=== PATIENT | female | born 1975 | race Caucasian/White ===

== ENCOUNTER 2017-04-05 16:41 | Emergency (ER) | payer OTHER ==
[~2017-04-05] VITALS: Ht 172.7 cm; Wt 79.3 kg
[2017-04-05 16:44] VITALS: TEMP 37; Ht 172.7 cm; Wt 79.3 kg
[2017-04-05] MEDS ORDERED: DEXAMETHASONE SOD INJ 10 MG/ML VIAL PO ONE (17:00)
[2017-04-05] MEDS ORDERED: FAMOTIDINE 20 MG TAB PO ONE (17:00)
[2017-04-05] MEDS ORDERED: BCPILLS PO (17:04)
--- NOTE | 2017-04-05 18:04 | EMERGENCY ROOM VISIT NOTE ---
History Report prepared by Markibmanan: Eliazar Green Under the Supervision of: Dr. Meaghan Duval D.O. First contact with patient: 16:44 Chief Complaint: ALLERGIC REACTION Stated Complaint: ALLERGIC REACTION History of Present Illness The patient is a 41 year old female who presents to the Emergency Room with complaints of an improving allergic reaction beginning 3.5 hours ago. 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 Per EMS, the patient's only symptoms is periorbital swelling. They state that the patient was given 100 mg of Benadryl at the camp which appears to have helped her symptoms. The patient states that the only new exposure she can think of is that she took liquid children's Tylenol last night and this morning. She denies any new foods, hygienic products , or bug bites. She states that she felt very congested with her symptoms, but states that this has improved. The patient denies any chest pain. She notes that her dog has a similar reaction last week, and is not sure if this could be related. She has no known history of allergies. Source of History: patient, EMS Onset: 3.5 hours ago Position: head (periorbital) Quality: other (allergic reaction) Timing: other (improving) Associated Symptoms: No chest pain Note: The patient also complains of improving congestion. Review of Systems See HPI for pertinent positives & negatives. A total of 10 systems reviewed and were otherwise negative. Past Medical & Surgical Medical Problems: (1) No Known Active Medical Problems Family History No pertinent family history stated. Social History Housing Status: lives with family Current/Historical Medications Scheduled Control Pills ( Control Pills), 1 TAB PO DAILY Epinephrine (Epipen), 0.3 MG IM UD Allergies Coded Allergies: No Known Allergies (Unverified , 04/05/17) Physical Exam Vital Signs Date Time Temp Pulse Resp B/P (MAP) Pulse Ox O2 Delivery O2 Flow Rate FiO2 04/05/17 19:01 89 16 129/60 98 04/05/17 17:39 75 16 117/70 99 Room Air 04/05/17 17:14 71 16 119/69 98 Room Air 04/05/17 16:48 80 04/05/17 16:44 Room Air 04/05/17 16:44 37.0 80 16 125/78 95 Room Air Physical Exam GENERAL: alert, well appearing, well nourished, no distress, non-toxic EYE EXAM: normal conjunctiva, PERRL and EOM's grossly intact. Periorbital edema noted. OROPHARYNX: no exudate, no erythema, lips, buccal mucosa, and tongue normal and mucous membranes are moist. No stridor. No swelling to the mouth or tongue. NECK: supple, no nuchal rigidity, no adenopathy, non-tender LUNGS: Clear to auscultation. Normal chest wall mechanics HEART: no murmurs, S1 normal and S2 normal ABDOMEN: abdomen soft, non-tender, normo-active bowel sounds, no masses, no rebound or guarding. BACK: Back is symmetrical on inspection and there is no deformity, no midline tenderness, no CVA tenderness. SKIN: no rashes and no bruising. No urticaria. UPPER EXTREMITIES: upper extremities are grossly normal. LOWER EXTREMITIES: No pitting edema. NEURO EXAM: Normal sensorium, cranial nerves II-XII grossly intact, normal speech, no gross weakness of arms, no gross weakness of legs. Medical Decision & Procedures Medications Administered Medications (Trade) Dose Ordered Sig/Ori Route Start Time Stop Time Status Last Admin Dose Admin Famotidine (Pepcid Tab) 20 mg NOW ONCE PO 04/05/17 17:00 04/05/17 17:01 DC 04/05/17 17:12 20 MG Dexamethasone Sodium Phosphate (Decadron Inj) 10 mg NOW ONCE PO 04/05/17 17:00 04/05/17 17:01 DC 04/05/17 17:13 10 MG Diphenhydramine HCl (diphenhydrAMINE 25MG HOME PACK) 1 homepack UD ONCE PO 04/05/17 19:00 04/05/17 19:01 DC 04/05/17 18:55 1 HOMEPACK ED Course 1647: The patient was evaluated in room C12B. A complete history and physical exam was performed. 1700: Ordered Decadron Inj 10 mg PO, Pepcid Tab 20 mg PO. 1752: I reassessed the patient she is still having some eye swelling, but it appears to be improving. She has no other symptoms. 180: Upon reevaluation, the patient is feeling better. I discussed the findings and the treatment plan with the patient. She verbalizes agreement and understanding. She was discharged home. Medical Decision Differential diagnosis: Etiologies such as allergic reaction, anaphylaxis, urticaria, Burnette-Zach syndrome, toxic epidermal necrolysis, erythema multiforme, cellulitis, as well as others were entertained. Patient well-appearing here states symptoms were improving by arrival but were not completely resolved. Patient given Benadryl by [facility] [employer] members. Patient with no prior history of significant allergic reactions, and unknown trigger today's events. Patient with no other systemic symptoms of anaphylaxis , no urticaria, no respiratory difficulty or hypoxia. Patient states developed nasal congestion and bilateral periorbital edema. No change in vision, no fevers chills, on exam patient well-appearing without any distress with mild periorbital edema, no evidence of periorbital cellulitis, no proptosis, normal vision at bedside. Patient given additional medications here which did help but not completely resolve her symptoms. Discussed the patient follow up with family doctor as well as possible need for additional allergy testing. Discussed use of EpiPen, Benadryl the next 2 days, symptoms to watch and return for, she verbalized understanding and was agreeable with plan. Medication Reconcilliation Current Medication List: was personally reviewed by me Blood Pressure Screening Patient's blood pressure: Normal blood pressure Blood pressure disposition: Did not require urgent referral Impression Primary Impression: Allergic reaction Scribe Attestation The scribe's documentation has been prepared under my direction and personally reviewed by me in its entirety. I confirm that the note above accurately reflects all work, treatment, procedures, and medical decision making performed by me. Departure Information Dispostion Home / Self-Care Prescriptions Epinephrine (EPIPEN) 0.3 Mg/0.3 Ml Inj 0.3 MG IM UD for ALLERGIC REACTION, #1 UNIT Prov: Meaghan Duval, 04/05/17 Patient Instructions My [facility] Additional Instructions Please follow up with your family doctor upon returning home. Please take Benadryl approximately every 6 hours of the next 2 days to help prevent any rebound allergic reaction. Please keep EpiPen with you at all times as a precaution. You may require additional allergy testing as it is unclear what you may have been reacting to. Please avoid trying any new foods, using any new personal hygiene products or detergents in the interim to help prevent any additional reaction. Problem Qualifiers Primary Impression: Allergic reaction Encounter type: initial encounter Qualified Codes: T78.40XA - Allergy, unspecified, initial encounter
[2017-04-05] MEDS ORDERED: EPP3/2 IM (18:05)
[2017-04-05] MEDS ORDERED: BENADRYL HOME PACK 25 MG TAB PO ONE (19:00)
[2017-04-05 19:01] VITALS: BP 129/60; PULSE 89; O2SAT 98
== END 2017-04-05 19:00 | disposition home or self-care (01) ==
LOC: C.EDC 16:43
DX: T78.40XA Allergy, unspecified, initial encounter (principal); Z79.3 Long term (current) use of hormonal contraceptives; X58.XXXA Exposure to other specified factors, initial encounter